=== PATIENT | female | born 1950 | race Caucasian/White ===

== ENCOUNTER → 2018-03-06 11:27 | Outpatient (CLI) | payer MEDICARE, OTHER, SELFPAY ==
--- NOTE | 2018-03-06 | DI.US.S_ITS ---
PROCEDURE: US THYROID INDICATIONS: MALIGNANT NEOPLASM OF THYROID GLAND TECHNIQUE: Real-time scanning was performed of the thyroid gland, with image documentation. COMPARISON: [facility], [place], BIOPSY LOCALIZATION/ASPIRATION, 06/13/2014, 15:58. [facility], [place], THYROID, 08/09/2016, 13:36. FINDINGS: Patient status post thyroidectomy and no residual thyroid or recurrent masses are seen within the right or left thyroid bed. IMPRESSION: Expected appearance of the thyroid bed bilaterally status post thyroidectomy. Dictated by: Jack SEO Interpreted: Edil Elizabeth MD on 03/06/2018 at 14:06 Approved by: Edil Elizabeth M.D. on 03/06/2018 at 16:08
[2018-03-06 12:44] LABS: BUN Creatinine Ratio 21.4 (6-22); Blood Urea Nitrogen 15 mg/dL (7-17); Calcium 9.6 mg/dL (8.4-10.2); Carbon Dioxide 27 mmol/L (22-32); Chloride 106 mmol/L (98-107); Estimated Glomerular Filt Rate > 60.0 mL/min (>60); Glucose 111 mg/dL (80-110); HEMOLYSIS 22 (0-50); Sodium 144 mmol/L (137-145)
[2018-03-06 13:18] LABS: Thyroid Stimulating Hormone < 0.02 uIU/mL (0.47-4.68)
[2018-03-10 15:34] LABS: Thyroglobulin Level 0.1 ng/mL (2.8-40.9)
== END ==
PROVIDERS: Family Provider Family Medicine; PCP Family Medicine; Visit Provider Internal Medicine Endocrinology, Diabetes & Metabolism
DX: C73 Malignant neoplasm of thyroid gland (principal)
CPT/HCPCS: 36415; 76536; 80048; 84432; 84443

== ENCOUNTER → 2019-01-19 12:55 | Outpatient (CLI) | payer MEDICARE, OTHER, SELFPAY ==
[2019-01-19 14:15] LABS: BUN Creatinine Ratio 11.1 (6-22); Blood Urea Nitrogen 10 mg/dL (7-17); Carbon Dioxide 30 mmol/L (22-32); Chloride 102 mmol/L (98-107); Estimated Glomerular Filt Rate > 60.0 mL/min (>60); Glucose 91 mg/dL (80-110); HEMOLYSIS < 15 (0-50); Potassium 4.6 mmol/L (3.4-5.1); Sodium 139 mmol/L (137-145)
[2019-01-19 14:19] LABS: Free T4, Direct Thyroxine 1.47 ng/dL (0.78-2.19)
[2019-01-19 14:33] LABS: Thyroid Stimulating Hormone 0.14 uIU/mL (0.47-4.68)
[2019-01-21 16:44] LABS: Thyroglobulin Antibodies < 1 IU/mL (< 2); Thyroglobulin Level < 0.1 ng/mL (2.8-40.9)
== END ==
PROVIDERS: PCP Family Medicine; Visit Provider Internal Medicine Endocrinology, Diabetes & Metabolism
DX: C73 Malignant neoplasm of thyroid gland (principal)
CPT/HCPCS: 36415; 80048; 84432; 84439; 84443; 86800

== ENCOUNTER → 2021-04-11 14:13 | Outpatient (CLI) | payer MEDICARE, OTHER, SELFPAY ==
[2021-04-11 14:40] LABS: COVID19 -Nasal RAPID Negative (Negative)
== END ==
PROVIDERS: PCP Family Medicine; Visit Provider Obstetrics & Gynecology
DX: Z01.812 Encounter for preprocedural laboratory examination (principal); Z20.822 Contact with and (suspected) exposure to COVID-19
CPT/HCPCS: 87635

== ENCOUNTER 2021-04-12 09:54 | Day surgery (SDC) | payer MEDICARE, OTHER, SELFPAY ==
[2021-04-11 13:30] VITALS: BMI 39.9
[2021-04-12] VITALS (11 sets, daily range): BP systolic 157–212; BP diastolic 71–94; PULSE 70–90; RESP 14–118; TEMP 36.2–36.7; O2SAT 95–100; BMI 39.9
--- NOTE | 2021-04-12 | PATH_ITS ---
[facility] Accession Number: [id number] . 01 Material submitted: . PART A: vulva - LEFT VULVAR MASS, RIGHT VULVAR MASSES (SMALLER ONES) PART B: body - FIBROIDS-SUBMUCOSAL . 01 Diagnosis: A. Left Vulvar Mass, Right Vulvar Masses (Smaller Ones), Biopsy: Benign fibroepithelial polyps. No dysplasia or malignancy. . B. Specimen Designated Fibroids-Submucosal, Excision: Histologic features consistent with benign endometrial polyp. Benign smooth muscle fragments, consistent with leiomyoma. No atypical hyperplasia and no malignancy identified. COUNT INCLUDES THE [facility] 04/17/2021 1558 Local . 01 Electronically signed: . Deanna Martinez MD, Pathologist NPI- [id number] . 01 Gross description: . A. Received in formalin, labeled left vulvar mass and right vulvar masses consists of four srinivasan-pink wrinkled fragments of skin ranging from 0.2 x 0.2 x 0.1 cm to 2.0 x 2.0 x 1.0 cm. The margins are inked blue and the specimen is entirely submitted. . A1: Three smaller fragments. A2: Largest fragment, serially sectioned. . B. Received in formalin, labeled fibroid submucosal consists of multiple srinivasan-pink fragments of soft tissue measuring 3.0 x 3.0 x 1.0 cm in aggregate. The specimen is entirely submitted in cassettes B1-B3. ([id number]) /MRV 04/13/2021 0958 Local . 01 Pathologist provided ICD-10: N84.0, D25.9 . 01 CPT . 799682, 418414 Performed at: 01 [facility] [address] [place] [address] [address], [place], [place] [id number] MD Carlos Olivia MD Phone: [phone]
--- NOTE | 2021-04-12 10:07 | SUR.OPER ---
Lithotomy on padded OR bed, head on pillow, arms secured on padded arm boards at <90 degrees abduction. Legs secured in padded yellow fins stirrups.
[2021-04-12] MEDS: LACTATED RINGERS 1,000 ML 100 ML IV (10:25)
--- NOTE | 2021-04-12 10:35 | PM.HP.1 ---
History of Present Illness History of Present Illness Date Patient Seen: 04/12/21 Time Patient Seen: 10:36 Chief complaint: SDC Narrative: Patient is a 70-year-old 0 with postmenopausal bleeding, endometrial hyperplasia, possible polyp on endometrial biopsy, and a left vulvar mass. She is here for a D&C hysteroscopy with possible polypectomy and excision of left vulvar mass Patient History Medical History (Updated 02/26/21 @ 11:42 by Sienna Strickland MD) Acquired hypothyroidism Hypertension Surgical History (Updated 02/26/21 @ 11:40 by Sienna Strickland MD) H/O thyroidectomy History of dilatation and curettage Hx laparoscopic cholecystectomy S/P tonsillectomy and adenoidectomy S/P wisdom tooth extraction Family & Social History Social History: household members spouse Tobacco & Substance use: Smoking Status Never smoker alcohol intake current alcohol intake frequency holiday/special occasion Substance Use Type does not use Meds Home Medications and Allergies Home Medications Medication Instructions Recorded Confirmed Type amlodipine 5 mg tablet 5 mg PO DAILY 02/09/21 04/12/21 History cholecalciferol (vitamin D3) 75 75 mcg PO DAILY 02/09/21 04/11/21 History mcg (3,000 unit) tablet cyclobenzaprine 10 mg tablet 10 mg PO BEDTIME 02/09/21 04/12/21 History desonide 0.05 % topical cream 1 applic TOPICAL DAILY PRN 02/09/21 04/11/21 History esomeprazole magnesium 40 mg 40 mg PO DAILY 02/09/21 04/12/21 History capsule,delayed release (Nexium) fexofenadine 180 mg tablet 180 mg PO DAILY 02/09/21 04/12/21 History (Lacy Allergy) hydrochlorothiazide 25 mg tablet 25 mg PO DAILY 02/09/21 04/11/21 History ketoconazole 2 % topical cream 1 applic TOPICAL DAILY 02/09/21 04/11/21 History levothyroxine 125 mcg capsule 125 mcg PO DAILY 02/09/21 04/12/21 History losartan 100 mg tablet 100 mg PO DAILY 02/09/21 04/12/21 History ondansetron 4 mg disintegrating 4 mg PO Q8H 02/09/21 04/12/21 History tablet triamcinolone acetonide 0.1 % 1 applic TOPICAL BID 02/09/21 04/11/21 History topical cream Allergies Allergy/AdvReac Type Severity Reaction Status Date / Time bee venom protein (honey bee) Allergy Hives; Verified 04/12/21 10:07 needs epipen shellfish derived Allergy Hives; Verified 04/12/21 10:07 needs epipen aspirin AdvReac Hives; Verified 04/12/21 10:07 needs Epipen codeine AdvReac Nausea Verified 04/12/21 10:07 morphine AdvReac nausea Verified 04/12/21 10:07 nystatin AdvReac Hives Verified 04/12/21 10:07 Penicillins AdvReac Nausea Verified 04/12/21 10:07 Sulfa (Sulfonamide AdvReac Slight Verified 04/12/21 10:07 Antibiotics) Reaction Exam Vital Signs (past 8 hours): - 04/12/21 10:15 Temperature 98.1 F Pulse Rate 85 Respiratory Rate 16 Blood Pressure 212/89 H Pulse Oximetry 100 Oxygen Delivery Method Room Air Narrative Exam Narrative: HEENT: No thyromegaly, no anterior cervical or supraclavicular lymphadenopathy. Lungs:Clear to auscultation bilaterally, no wheezes. Cardiovascular: Regular rate and rhythm, no murmurs, rubs, or gallops. Abdomen: No scars. No hepatosplenomegaly. No masses palpable. External genitalia: 2 cm left vulvar mass Vagina: Atrophic Cervix: Nulliparous Bimanual exam: 7 Week size anteverted uterus. Mobile. No adnexal masses or tenderness Assessment & Plan Assessment & Plan narrative: Assessment: 70-year-old 0 with postmenopausal bleeding, endometrial hyperplasia, fibroid uterus, and a left vulvar mass Possible endometrial polyp Plan: D&C hysteroscopy with possible polypectomy and excision of left vulvar mass The risks, benefits, and alternatives to the procedure were explained to the patient. The risks including bleeding, infection, and uterine perforation. She understands these risks and agrees to proceed. A full par Q was held and consent form was signed. COVID-19 COVID-19 status: Negative Result date/Date tested (Pos, Neg/Pending): 04/11/21 Time Spent With Patient Time with patient: less than 30 minutes Critical Care time: I spent a total of [] minutes of critical care time on this patient's care today; this time is exclusive of procedural time.
--- NOTE | 2021-04-12 10:38 | PM.PREOP ---
Pre-operative Note COVID-19 COVID-19 status: Negative Result date/Date tested (Pos, Neg/Pending): 04/11/21 Interval Note History & Physical reviewed/Exam performed by Physician: Yes Changes to H&P: No H&P completed within 30 days and has changed as indicated here:: 04/12/21
[2021-04-12] MEDS: LIDOCAINE 1% W/EPI 20 ML INJ (11:23)
[2021-04-12] MEDS: OXYCODONE/ACETAMINOPHEN 5/325 TABLET 1 TAB PO (12:02)
--- NOTE | 2021-04-12 12:02 | PM.GYNOP.1 ---
Operative Date/Time/Diagnoses Date of procedure: 04/12/21 Time of procedure: 12:02 Pre-op diagnosis: Postmenopausal bleeding Endometrial hyperplasia Fibroid uterus Vulvar masses Post-op diagnosis: same Procedure & Clinicians Procedure: Procedures Operation Date: 04/12/21 11:30 Actual Procedure Side Surgeon p Hysteroscopy D&C, resection of endometrial fibroids, excision of vulvar masses Sienna Strickland MD Indications: Postmenopausal bleeding Vulvar lesion Surgeon: Sienna Strickland Anesthesia Type: General and Local Operative Notes Findings: 7 week size anteverted uterus Posterior endometrial mass consistent with a fibroid Vulvar lesions bilaterally Closure Type: not applicable Specimen(s): endometrial curettings, endometrial polyp (And fibroid) and other (Vulvar lesions) Estimated blood loss (mL): 10 Blood products transfused: none Procedure in detail: After informed consent was obtained, the patient was taken to the operating room where she was placed in the dorsal supine position. After adequate LMA general anesthesia was achieved, she was placed in the dorsal lithotomy position, and prepped and draped in the usual sterile fashion. A time-out was performed. A bivalve speculum was placed into the vagina and the anterior lip of the cervix was grasped with a single-tooth tenaculum. Cervical os was sequentially dilated until the hysteroscope could pass easily into the endometrial cavity. Initial inspection showed a posterior mass consistent with either of polyp were a fibroid. The hysteroscope was removed. The cervical os was dilated to the # 9 Hegar dilator. The resectoscope passed easily into the endometrial cavity. The mass was resected in approximately 5 pieces with settings at 80 cut and 60 cautery. The hysteroscope was removed. Sharp curettage was performed yielding moderate amount of endometrial curettings. The instruments were removed from the uterus. The single-tooth tenaculum was removed from the anterior lip of the cervix. The bivalve speculum was removed from the vagina. Attention was turned to the vulva where there was a 2 cm x 2 cm right vulvar mass and smaller masses on the left vulva measuring 2-3 mm x 2-3 mm each. 0.5% Marcaine with epinephrine were injected at the base of all of the masses. Using the Bovie, the masses were excised at the level of the skin. The Bovie was used for hemostasis. Sponge, lap, and instrument counts were correct x2. The patient tolerated the procedure well, and was taken to PACU in stable condition. Complications: none Post-operative Condition: stable Disposition: PACU Plan for aftercare: Home after recovery
[2021-04-12] MEDS: ONDANSETRON 4 MG/2 ML INJ IV (12:03)
== END 2021-04-12 13:21 | disposition home or self-care (01) ==
PROVIDERS: PCP Physician Assistant Medical; Referring Provider Obstetrics & Gynecology; Visit Provider Obstetrics & Gynecology
PROC: 0UDB8ZZ Extraction of Endometrium, Via Natural or Artificial Opening Endoscopic (ICD-10-PCS; CPT 58558; principal; 2021-04-12 11:30)
DX: D25.0 Submucous leiomyoma of uterus (principal); L91.8 Other hypertrophic disorders of the skin
CPT/HCPCS: 58561; 11424; 11420; J0360; J1100; J1885; J2250; J2405; J2704; J3010

== ENCOUNTER → 2022-01-31 14:21 | Outpatient (CLI) | payer MEDICARE, OTHER, SELFPAY ==
--- NOTE | 2022-01-31 | DI.ECHO.S_ITS ---
[facility] +---------+ : : [id number] : : : : [id number] : : : : Phone: [phone]+ Echocardiogram Report + + :Name: AMELIE VASQUEZ Study Date: 01/31/2022 Height: 63.5 in : :[facility] ReadingLocation: Weight: 241 lb : : Gender: Female BSA: 2.1 m2 : :: 1950 Age: 71 yrs BP: 178/102 mmHg: :Reason For Study: DYSPNEA : :Ordering Physician: ANGIE, : :JAYSHREE Performed By: Erin Bell : :Referring: JAYSHREE ADAMS : + + Interpretation Summary Grossly normal size LV. There is mild concentric left ventricular hypertrophy. The ejection fraction is estimated to be 60-65%. Diastolic parameters suggest a pseudonormalization pattern, consistent with probable elevated filling pressures. The right ventricle is normal in size and function. The left atrium is severely dilated. There is mild mitral regurgitation. Mild TR. Mild atherosclerotic plaque(s) in the aortic arch. Procedure: A two-dimensional transthoracic echocardiogram with color flow and Doppler was performed. Patient scanned in a supine and mostly seated position due to pain on left side/ back. Most of the acoustic windows were suboptimal, but the best imaging was obtained from the apical window. There is no prior echocardiogram noted for this patient. The patient was in sinus rhythm with heart rates between 60-65 bpm during the exam. Left Ventricle: There is mild concentric left ventricular hypertrophy. The left ventricle is grossly normal size. There is no thrombus. The ejection fraction is estimated to be 60-65%. There are no focal wall motion abnormalities. Diastolic parameters suggest a pseudonormalization pattern, consistent with probable elevated filling pressures. Right Ventricle: The right ventricle is normal in size and function. Atria: The left atrium is severely dilated. Right atrial size is normal. There is no Doppler evidence for an interatrial shunt. Mitral Valve: The mitral valve leaflets appear mildly thickened, but open well. There is mild mitral annular calcification. The mitral valve leaflets are slightly calcified. There is mild mitral regurgitation. Aortic Valve: The aortic valve is not well visualized. There is discrete nodular thickening of the non- coronary cusp. There is no aortic valve stenosis. No aortic regurgitation is present. Tricuspid Valve: The tricuspid valve is normal. There is mild tricuspid regurgitation. Pulmonary artery pressures cannot be estimated because of the lack of a measurable TR jet velocity. Pulmonic Valve: The pulmonic valve is not well visualized. Great Vessels: The aortic root is normal size. The ascending aorta could not be visualized. Mild atherosclerotic plaque(s) in the aortic arch. The inferior vena cava was not visualized. Pericardium/ Pleura There is no pericardial effusion. There is no pleural effusion. MMode/2D Measurements & Calculations LVIDd: 3.4 cm LVOT diam: 1.8 cm LVIDs: 2.3 cm Ao root diam: 2.7 cm FS: 32.1 % Ao Arch Diam (Prox Trans): 2.8 cm IVSd: 1.1 cm LVPWd: 1.1 cm LV bang. diameter/BSA (cm/m^2): 1.6 LV sys. diameter/BSA (cm/m^2): 1.1 LA A2 area: 26.7 cm2 RA long axis: 4.8 cm LA A4 area: 34.6 cm2 RA area: 16.1 cm2 LA length (vol): 6.2 cm RA vol: 45.8 ml LA vol: 126.4 ml RA : 21.8 ml/m2 LA vol index: 60.1 ml/m2 RVD1 (basal): 3.7 cm RVD2 (mid): 3.2 cm TAPSE: 2.2 cm Doppler Measurements & Calculations Ao V2 max: 153.0 cm/sec LVOT Max Gómez: 101.8 cm/sec Ao V2 mean: 104.9 cm/sec LV V1 max P.1 mmHg Ao max P.4 mmHg LV V1 VTI: 26.1 cm Ao mean P.0 mmHg CELINA(I,D): 1.8 cm2 Ao V2 VTI: 35.9 cm CELINA(V,D): 1.6 cm2 sev ratio: 0.73 CELINA indexed to BSA (cm^2/m^2): 0.85 MV E max gómez: 119.8 cm/sec MV V2 mean: 57.3 cm/sec MV A max gómez: 78.6 cm/sec MV mean P.9 mmHg MV E/A: 1.5 MV V2 VTI: 27.2 cm Med Peak E' Gómez: 6.6 cm/sec E/E' med: 18.2 Lat Peak E' Gómez: 6.9 cm/sec E/E' lat: 17.3 E/e' average: 17.7 MV dec time: 0.22 sec MVA(VTI): 2.4 cm2 SVLVOT): 64.4 ml Reading Physician:04:28 PM
== END ==
PROVIDERS: PCP Physician Assistant Medical; Referring Provider Physician Assistant Medical; Visit Provider Physician Assistant Medical
DX: I08.1 Rheumatic disorders of both mitral and tricuspid valves (principal); I70.0 Atherosclerosis of aorta; R06.09 Other forms of dyspnea
CPT/HCPCS: 93306

== ENCOUNTER → 2022-04-18 09:23 | Outpatient (CLI) | payer MEDICARE, OTHER, SELFPAY ==
[2022-04-18 10:26] LABS: COVID19 -Nasal RAPID Negative (Negative)
== END ==
PROVIDERS: PCP Physician Assistant Medical; Referring Provider Internal Medicine; Visit Provider Internal Medicine
DX: Z20.822 Contact with and (suspected) exposure to COVID-19 (principal)
CPT/HCPCS: 87635; C9803

== ENCOUNTER → 2022-04-18 09:26 | Outpatient (CLI) | payer MEDICARE, OTHER, SELFPAY ==
--- NOTE | 2022-04-24 08:19 | PM.PFT.1 ---
Pulmonary Function Test Referral & Results Date Patient Seen: 04/18/22 Requesting provider: Luis A Damon Results: The spirometry demonstrates an FVC of 2.19 L which is 78% of predicted. The FEV1 was measured at 1.75 L which is 83% of predicted. The FEV1/FVC ratio was 80 which is 105% of predicted. Following the administration of bronchodilator there was no appreciable change. Lung volumes show an SVC of 2.18 L which is 79% of predicted. The diffusing capacity was measured at 19.10 which is 83% of predicted. No hemoglobin value was provided, so no correction for potential anemia could be made, if appropriate. The maximum voluntary ventilation was minimally if at all reduced Interpretation: This study demonstrates perhaps very mild obstructive lung disease based on reduction FEV1 although FEV1/FVC ratio is preserved and there really is no evidence of benefit following bronchodilator administration There is a minimal reduction in lung volumes suggesting the presence of very mild restrictive lung disease and this probably explains the abnormality in the FEV1 above There is a minimal reduction in diffusing capacity suggesting the possibility of very mild disease at the capillary alveolar level Clinical correlation suggested
== END ==
PROVIDERS: PCP Physician Assistant Medical; Referring Provider Internal Medicine Cardiovascular Disease; Visit Provider Internal Medicine Cardiovascular Disease
DX: I50.32 Chronic diastolic (congestive) heart failure (principal); Z20.822 Contact with and (suspected) exposure to COVID-19
CPT/HCPCS: 87635; 94060; 94726; 94729; C9803